=== PATIENT | male | born 1935 | race Caucasian/White ===

== ENCOUNTER 2020-05-26 10:44 | Emergency (ER) | payer MEDICARE, OTHER ==
--- NOTE | 2020-05-26 11:55 | EDM.PDOC ---
ED HPI GENERAL MEDICAL PROBLEM - General Chief Complaint: Respiratory Problem Stated Complaint: AMBULANCE Time Seen by Provider: 05/26/20 11:45 Source of Information: Reports: Patient History Limitations: Reports: No Limitations - History of Present Illness INITIAL COMMENTS - FREE TEXT/NARRATIVE: This 85 yo male patient was brought to the ED by [facility] due to nausea/vomiting and feeling hot. The patient reports he was nauseated this morning and vomited once. After vomiting, the patient reports he took all of his medications as prescribed. The patient reports he is currently feeling a little better, but his glucose monitor is beeping at him that he has low blood sugar levels. The patient reports he has been sweating all morning. The patient appears to be having difficulties breathing, but the patient reports his breathing is normal for him. Onset: Today Duration: Constant Location: Reports: Chest, Abdomen, Generalized Quality: Reports: Other Severity: Moderate Improves with: Reports: None Worsens with: Reports: None Context: Reports: Other Associated Symptoms: Reports: Fever/Chills, Nausea/Vomiting, Shortness of Breath (chronic) - Related Data Allergies Allergy/AdvReac Type Severity Reaction Status Date / Time atorvastatin calcium Allergy Joint Pain Verified 05/26/20 11:01 [From Lipitor] Home Meds: Home Meds Albuterol [Ventolin HFA] 1 puff INH Q6H PRN 05/27/14 [History] Isosorbide Mononitrate [Isosorbide Mononitrate ER] 30 mg PO DAILY 05/27/14 [History] Rosuvastatin [Crestor] 40 mg PO DAILY 05/27/14 [History] atenoloL [Tenormin] 100 mg PO DAILY 05/27/14 [History] Amoxicillin 500 mg PO ASDIRECTED PRN 05/26/20 [History] Apixaban [Eliquis] 10 mg PO DAILY 05/26/20 [History] Ferrous Sulfate 325 mg PO DAILY 05/26/20 [History] Fluticasone Propionate [Flonase] 1 spray NASBOTH DAILY 05/26/20 [History] Fluticasone/Vilanterol [Breo Ellipta 100-25 MCG Inhalation Kit] 1 puff INH DAILY 05/26/20 [History] Insulin Glarg,Human.Rec.Analog [Lantus Solostar] 35 units SQ DAILY 05/26/20 [History] Insulin Lispro [HumaLOG] 12 units SQ TID 05/26/20 [History] Ipratropium/Albuterol Sulfate [Iprat-Albut 0.5-3(2.5) mg/3 ml] 3 ml INH ASDIRECTED PRN 05/26/20 [History] Levothyroxine [Synthroid] 88 mcg PO DAILY 05/26/20 [History] Spironolactone [Aldactone] 12.5 mg PO DAILY 05/26/20 [History] Past Medical History HEENT History: Reports: Other (See Below) Other HEENT History: difficulty hearing Cardiovascular History: Reports: High Cholesterol, Hypertension Gastrointestinal History: Reports: Other (See Below) Other Gastrointestinal History: hernia Genitourinary History: Reports: None Musculoskeletal History: Reports: None Neurological History: Reports: None Psychiatric History: Reports: None Endocrine/Metabolic History: Reports: Diabetes, Type II Hematologic History: Reports: None Immunologic History: Reports: None Oncologic (Cancer) History: Reports: None Dermatologic History: Reports: None - Infectious Disease History Infectious Disease History: Reports: Chicken Pox - History Comment History Comment: on coumadin Social & Family History - Family History Family Medical History: Noncontributory - Tobacco Use Smoking Status *Q: Never Smoker Second Hand Smoke Exposure: No - Caffeine Use Caffeine Use: Reports: Soda - Recreational Drug Use Recreational Drug Use: No ED ROS GENERAL - Review of Systems Review Of Systems: Comprehensive ROS is negative, except as noted in HPI. ED EXAM, GENERAL - Physical Exam Exam: See Below Exam Limited By: No Limitations General Appearance: Alert, WD/WN, Mild Distress Eye Exam: Bilateral Eye: EOMI, Normal Inspection, PERRL Ears: Normal External Exam, Normal Canal, Hearing Grossly Normal, Normal TMs Nose: Normal Inspection, Normal Mucosa, No Blood Throat/Mouth: Normal Inspection, Normal Lips, Normal Teeth, Normal Gums, Normal Oropharynx, Normal Voice, No Airway Compromise Head: Atraumatic, Normocephalic Neck: Normal Inspection, Supple, Non-Tender, Full Range of Motion Respiratory/Chest: No Respiratory Distress, No Accessory Muscle Use, Chest Non- Tender, Decreased Breath Sounds, Rhonchi (diffuse) Cardiovascular: Normal Peripheral Pulses, Regular Rate, Rhythm, No Edema, No Gallop, No JVD, No Murmur, No Rub GI/Abdominal: Normal Bowel Sounds, Soft, Non-Tender, No Organomegaly, No Distention, No Abnormal Bruit, No Mass (Male) Exam: Deferred Rectal (Males) Exam: Deferred Back Exam: Normal Inspection, Full Range of Motion, NT Extremities: Normal Inspection, Normal Range of Motion, Non-Tender, Normal Capillary Refill, No Pedal Edema Neurological: Alert, Oriented, CN II-XII Intact, Normal Cognition, Normal Gait, Normal Reflexes, No Motor/Sensory Deficits Psychiatric: Normal Affect, Normal Mood Skin Exam: Warm, Intact, Normal Color, No Rash, Diaphoretic Course - Vital Signs Last Recorded V/S: Last Vital Signs Temp 35.4 C L 05/26/20 13:06 Pulse 73 05/26/20 13:06 Resp 16 05/26/20 13:06 BP 88/53 L 05/26/20 13:06 Pulse Ox 96 05/26/20 13:06 - Orders/Labs/Meds Orders: Active Orders 24 hr Category Date Time Status EKG Documentation Completion [RC] STAT Care 05/26/20 11:14 Active Glucose [Blood Glucose Check, Bedside] [RC] ONETIME Care 05/26/20 11:50 Active CULTURE BLOOD [BC] Stat Lab 05/26/20 11:27 Received Labs: Laboratory Tests 05/26/20 05/26/20 05/26/20 Range/Units 11:27 11:27 11:27 WBC 17.6 H (5.0-10.0) 10^3/uL RBC 5.53 (4.6-6.2) 10^6/uL Hgb 16.0 (14.0-18.0) g/dL Hct 46.7 (40.0-54.0) % MCV 84.4 (80-100) fL MCH 28.9 (27.0-34.0) pg MCHC 34.3 (33.0-35.0) g/dL Plt Count 262 (150-450) 10^3/uL Neut % (Auto) 93.1 H (42.2-75.2) % Lymph % (Auto) 3.0 L (20.5-50.1) % [place] % (Auto) 3.5 (2-8) % Eos % (Auto) 0.1 L (1.0-3.0) % Baso % (Auto) 0.3 (0.0-1.0) % Sodium 135 L (136-145) mmol/L Potassium 4.1 (3.5-5.1) mmol/L Chloride 100 (98-107) mmol/L Carbon Dioxide 26 (21-32) mmol/L Anion Gap 13.1 H (7-13) mEq/L BUN 21 H (7-18) mg/dL Creatinine 1.37 H (0.70-1.30) mg/dL Est Cr Clr Drug Dosing 36.19 mL/min Estimated GFR (MDRD) 49 BUN/Creatinine Ratio 15.3 (No establ ref range) Glucose 73 L (74-99) mg/dL Lactic Acid 2.3 H* (0.4-2.0) mmol/L Calcium 8.9 (8.5-10.1) mg/dL Total Bilirubin 2.3 H (0.2-1.0) mg/dL AST 37 (15-37) U/L ALT 45 (16-63) U/L Alkaline Phosphatase 225 H (46-116) U/L Troponin I 0.051 (0.000-0.056) ng/mL B-Natriuretic Peptide 461 H (0-100) pg/ml Total Protein 7.1 (6.4-8.2) g/dL Albumin 2.8 L (3.4-5.0) g/dL Globulin 4.3 Albumin/Globulin Ratio 0.65 COVID-19 (EVONNE) (NEGATIVE) 05/26/20 Range/Units 11:40 WBC (5.0-10.0) 10^3/uL RBC (4.6-6.2) 10^6/uL Hgb (14.0-18.0) g/dL Hct (40.0-54.0) % MCV (80-100) fL MCH (27.0-34.0) pg MCHC (33.0-35.0) g/dL Plt Count (150-450) 10^3/uL Neut % (Auto) (42.2-75.2) % Lymph % (Auto) (20.5-50.1) % [place] % (Auto) (2-8) % Eos % (Auto) (1.0-3.0) % Baso % (Auto) (0.0-1.0) % Sodium (136-145) mmol/L Potassium (3.5-5.1) mmol/L Chloride (98-107) mmol/L Carbon Dioxide (21-32) mmol/L Anion Gap (7-13) mEq/L BUN (7-18) mg/dL Creatinine (0.70-1.30) mg/dL Est Cr Clr Drug Dosing mL/min Estimated GFR (MDRD) BUN/Creatinine Ratio (No establ ref range) Glucose (74-99) mg/dL Lactic Acid (0.4-2.0) mmol/L Calcium (8.5-10.1) mg/dL Total Bilirubin (0.2-1.0) mg/dL AST (15-37) U/L ALT (16-63) U/L Alkaline Phosphatase (46-116) U/L Troponin I (0.000-0.056) ng/mL B-Natriuretic Peptide (0-100) pg/ml Total Protein (6.4-8.2) g/dL Albumin (3.4-5.0) g/dL Globulin Albumin/Globulin Ratio COVID-19 (EVONNE) Negative (NEGATIVE) Meds: Medications Discontinued Medications Generic Name Dose Route Start Last Admin Trade Name Freq PRN Reason Stop Dose Admin Ceftriaxone Sodium 1 gm/ 50 mls @ 100 mls/hr 05/26/20 12:30 05/26/20 12:39 Sodium Chloride IV 05/26/20 12:59 100 mls/hr ONETIME ONE Administration Departure - Departure Time of Disposition: 13:49 Disposition: Home, Self-Care 01 Condition: Fair Clinical Impression: Hypoglycemia, Bronchitis - Discharge Information *PRESCRIPTION DRUG MONITORING PROGRAM REVIEWED*: Not Applicable *COPY OF PRESCRIPTION DRUG MONITORING REPORT IN PATIENT CRISTY: Not Applicable Instructions: Hypoglycemia, [id number], Acute Bronchitis, Adult, [id number] Forms: ED Department Discharge Care Plan Goals: The patient was advised of the examination, EKG, x-ray and lab results during the visit. The patient was given an IV dose of Rocephin (1 gram) while in the ED. The patient was discharged with a script for Azithromycin (250 mg) #6 to take 2 by mouth on day 1 and 1 by mouth on days 2-5. If the patient has any additional symptoms or concerns, the patient should visit his primary care facility or return to the emergency department. Sepsis Event Note (ED) - Evaluation Sepsis Screening Result: No Definite Risk - Focused Exam Vital Signs: Vital Signs Temp Pulse Resp BP Pulse Ox 05/26/20 13:06 35.4 C L 73 16 88/53 L 96 05/26/20 10:45 37.2 C 80 23 H 114/58 L 94 L - My Orders Last 24 Hours: My Active Orders 05/26/20 11:14 EKG Documentation Completion [RC] STAT 05/26/20 11:27 CULTURE BLOOD [BC] Stat 05/26/20 11:50 Glucose [Blood Glucose Check, Bedside] [RC] ONETIME - Assessment/Plan Last 24 Hours: My Active Orders 05/26/20 11:14 EKG Documentation Completion [RC] STAT 05/26/20 11:27 CULTURE BLOOD [BC] Stat 05/26/20 11:50 Glucose [Blood Glucose Check, Bedside] [RC] ONETIME
[2020-05-26 12:03] LABS: ANION GAP 13.1 mEq/L (7-13)
--- NOTE | 2020-05-26 12:28 | CR ---
EXAMINATION: Chest 1V Frontal SEX: Male AGE: 85 years CLINICAL HISTORY: 85-year-old male complaining of shortness of breath (SOB). INTERPRETATION: Abnormal. 1. Asymmetric patchy consolidation left base consistent with apparent infiltrate, atelectasis or bronchiectasis demonstrated on CT exam March 2017 recent aspiration and no pneumonia differential consideration. Clinical? 2. Normal cardiac silhouette (pacemaker leads intact) without pulmonary vascular congestion, cephalization of flow, alveolar edema or dependent pleural effusion. 3. No new lung mass or hilar lymphadenopathy. 4. No pneumothorax or pneumomediastinum. Midline tracheal bronchial airway unremarkable. CONCLUSION: Left lower lobe consolidation (see above).
[2020-05-26] MEDS ORDERED: cefTRIAXone 1 GM in Sodium Chloride 0.9% 50 ML IV ONE (12:30)
[2020-05-26 13:08] VITALS: BP 88/53; PULSE 73
== END 2020-05-26 14:04 | disposition home or self-care (01) ==
LOC: DL.ED 10:44
DX: J40 Bronchitis, not specified as acute or chronic (principal); E11.649 Type 2 diabetes mellitus with hypoglycemia without coma; I10 Essential (primary) hypertension; E78.00 Pure hypercholesterolemia, unspecified; Z20.828 Contact with and (suspected) exposure to other viral communicable diseases; Z79.01 Long term (current) use of anticoagulants; Z79.4 Long term (current) use of insulin; Z79.899 Other long term (current) drug therapy; Z88.8 Allergy status to other drugs, medicaments and biological substances
CPT/HCPCS: 36415; 71045; 80053; 82962; 83605; 83880; 84484; 85025; 87040; 93005; 96365; 99285; J0696; J7050; U0002

== ENCOUNTER 2020-05-30 10:34 | Emergency (ER) | payer MEDICARE, OTHER ==
[2020-05-30 10:55] VITALS: BP 118/82; PULSE 78
--- NOTE | 2020-05-30 12:40 | CR ---
PROCEDURE INFORMATION: Exam: XR Chest, 2 Views Exam date and time: 05/30/2020 12:20 PM Age: 85 years old Clinical indication: Cough TECHNIQUE: Imaging protocol: XR of the chest Views: 2 views. COMPARISON: CR Chest 1V Frontal 05/26/2020 12:12 PM FINDINGS: Tubes, catheters and devices: Chronic unchanged right sided cardiac pacer generator having 2 intact leads. Lungs: The lungs are normally expanded and clear. Pleural space: Normal. Heart/Mediastinum: Normal heart and cardiomediastinal silhouette. Vasculature: Aortic root graft. Bones/joints: The bones are intact. IMPRESSION: No change or acute disease.
--- NOTE | 2020-05-30 13:28 | EDM.PDOC ---
Scribed by Hilaria Mcdowell 05/30/20 1323 for Jennifer Rodgers NP ED HPI GENERAL MEDICAL PROBLEM - General Chief Complaint: General Stated Complaint: NAUSEA, BRONCHITIS, WEAK Time Seen by Provider: 05/30/20 11:45 Source of Information: Reports: Patient, Family, RN, RN Notes Reviewed History Limitations: Reports: No Limitations - History of Present Illness INITIAL COMMENTS - FREE TEXT/NARRATIVE: Patient presents to ER with history of bronchitis and feeling worse. He was seen in the ER earlier this week and diagnosed with bronchitis. He was given 1 gram Rocephin IV and sent home with a Z-PRIYANKA. He has one pill left on the Z-PRIYANKA but is feeling worse. He was COVID negative earlier in the week. Onset: Gradual Duration: Getting Worse Location: Reports: Chest Quality: Reports: Ache Severity: Moderate Improves with: Reports: None Worsens with: Reports: None Associated Symptoms: Reports: No Other Symptoms - Related Data Allergies Allergy/AdvReac Type Severity Reaction Status Date / Time atorvastatin calcium Allergy Joint Pain Verified 05/30/20 10:55 [From Lipitor] Home Meds: Home Meds Albuterol [Ventolin HFA] 1 puff INH Q6H PRN 05/27/14 [History] Isosorbide Mononitrate [Isosorbide Mononitrate ER] 30 mg PO DAILY 05/27/14 [History] Rosuvastatin [Crestor] 40 mg PO DAILY 05/27/14 [History] atenoloL [Tenormin] 100 mg PO DAILY 05/27/14 [History] Amoxicillin 500 mg PO ASDIRECTED PRN 05/26/20 [History] Apixaban [Eliquis] 10 mg PO DAILY 05/26/20 [History] Ferrous Sulfate 325 mg PO DAILY 05/26/20 [History] Fluticasone Propionate [Flonase] 1 spray NASBOTH DAILY 05/26/20 [History] Fluticasone/Vilanterol [Breo Ellipta 100-25 MCG Inhalation Kit] 1 puff INH DAILY 05/26/20 [History] Insulin Glarg,Human.Rec.Analog [Lantus Solostar] 35 units SQ DAILY 05/26/20 [History] Insulin Lispro [HumaLOG] 12 units SQ TID 05/26/20 [History] Ipratropium/Albuterol Sulfate [Iprat-Albut 0.5-3(2.5) mg/3 ml] 3 ml INH ASDIRECTED PRN 05/26/20 [History] Levothyroxine [Synthroid] 88 mcg PO DAILY 05/26/20 [History] Spironolactone [Aldactone] 12.5 mg PO DAILY 05/26/20 [History] Past Medical History HEENT History: Reports: Other (See Below) Other HEENT History: difficulty hearing Cardiovascular History: Reports: High Cholesterol, Hypertension Gastrointestinal History: Reports: Other (See Below) Other Gastrointestinal History: hernia Genitourinary History: Reports: None Musculoskeletal History: Reports: None Neurological History: Reports: None Psychiatric History: Reports: None Endocrine/Metabolic History: Reports: Diabetes, Type II Hematologic History: Reports: None Immunologic History: Reports: None Oncologic (Cancer) History: Reports: None Dermatologic History: Reports: None - Infectious Disease History Infectious Disease History: Reports: Chicken Pox - History Comment History Comment: on coumadin Social & Family History - Family History Family Medical History: Noncontributory - Tobacco Use Smoking Status *Q: Never Smoker Second Hand Smoke Exposure: No - Caffeine Use Caffeine Use: Reports: Soda - Recreational Drug Use Recreational Drug Use: No ED ROS GENERAL - Review of Systems Review Of Systems: Comprehensive ROS is negative, except as noted in HPI. ED EXAM, GENERAL - Physical Exam Exam: See Below Exam Limited By: No Limitations General Appearance: Alert, WD/WN, No Apparent Distress Eye Exam: Bilateral Eye: EOMI, Normal Inspection, PERRL Ears: Normal External Exam, Normal Canal, Hearing Grossly Normal, Normal TMs Nose: Normal Inspection, Normal Mucosa, No Blood Throat/Mouth: Normal Inspection, Normal Lips, Normal Teeth, Normal Gums, Normal Oropharynx, Normal Voice, No Airway Compromise Head: Atraumatic, Normocephalic Neck: Normal Inspection, Supple, Non-Tender, Full Range of Motion Respiratory/Chest: Other (mild decreased breath sounds.) Cardiovascular: Normal Peripheral Pulses, Regular Rate, Rhythm, No Edema, No Gallop, No JVD, No Murmur, No Rub GI/Abdominal: Normal Bowel Sounds, Soft, Non-Tender, No Organomegaly, No Distention, No Abnormal Bruit, No Mass (Male) Exam: Deferred Rectal (Males) Exam: Deferred Back Exam: Normal Inspection, Full Range of Motion, NT Extremities: Normal Inspection, Normal Range of Motion, Non-Tender, Normal Capillary Refill, No Pedal Edema Neurological: Alert, Oriented, CN II-XII Intact, Normal Cognition, Normal Gait, Normal Reflexes, No Motor/Sensory Deficits Psychiatric: Normal Affect, Normal Mood Skin Exam: Warm, Dry, Intact, Normal Color, No Rash Course - Vital Signs Text/Narrative:: No fevers, chest xray negative. Had Rocephin IV 4 days ago; and just finishing his z-pack tomorrow. concerned that he still is coughing with congestion. No SOB. VSS. would benifit by a IS; given. Would benifit by a albuterol inhaler rx given. Will f/u with PCP in 1 week. Last Recorded V/S: Last Vital Signs Temp 97.3 F 05/30/20 10:51 Pulse 78 05/30/20 10:51 Resp 16 05/30/20 10:51 BP 118/82 05/30/20 10:51 Pulse Ox 98 05/30/20 10:51 - Radiology Interpretation Free Text/Narrative:: Chest x-ray: No change or acute disease. See rad report. Departure - Departure Time of Disposition: 13:26 Disposition: Home, Self-Care 01 Condition: Good Clinical Impression: Bronchitis - Discharge Information Forms: ED Department Discharge Additional Instructions: Xray is negative. Bronchitis will take time to improve. Follow up with PCP in 1 week. Use inhaler albuterol 2 puffs 3 x per day Sepsis Event Note (ED) - Evaluation Sepsis Screening Result: No Definite Risk - Focused Exam Vital Signs: Vital Signs Temp Pulse Resp BP Pulse Ox 05/30/20 10:51 97.3 F 78 16 118/82 98 I have read and agree with the documentation that has been completed regarding this visit. By signing this record, I attest that the documentation was completed in my physical presence and is an accurate record of the encounter.
== END 2020-05-30 13:33 | disposition home or self-care (01) ==
LOC: DL.ED 10:34
DX: J40 Bronchitis, not specified as acute or chronic (principal); E78.00 Pure hypercholesterolemia, unspecified; I10 Essential (primary) hypertension; E11.9 Type 2 diabetes mellitus without complications; Z79.4 Long term (current) use of insulin; Z79.01 Long term (current) use of anticoagulants; Z88.8 Allergy status to other drugs, medicaments and biological substances; Z79.899 Other long term (current) drug therapy
CPT/HCPCS: 71046; 99283; 99283-25

== ENCOUNTER 2020-06-10 17:26 | Emergency (ER) | payer MEDICARE, OTHER ==
[2020-06-10 17:38] VITALS: BP 104/61; PULSE 85
--- NOTE | 2020-06-10 17:43 | EDM.PDOC ---
<Nathen Avila - Last Filed: 06/10/20 18:47> ED HPI GENERAL MEDICAL PROBLEM - General Stated Complaint: ABDOMINAL PAIN Time Seen by Provider: 06/10/20 18:59 Source of Information: Reports: Patient History Limitations: Reports: No Limitations - History of Present Illness INITIAL COMMENTS - FREE TEXT/NARRATIVE: This 85 yo male patient was sent to the ED by Dr. yL ([facility]) due to abdominal pain, vomiting, chills, an elevated billirubin and elevated LFT's. The patient reports his symptoms started 3 days ago. - Related Data Allergies Allergy/AdvReac Type Severity Reaction Status Date / Time atorvastatin calcium Allergy Joint Pain Verified 06/10/20 17:44 [From Lipitor] Home Meds: Home Meds Albuterol [Ventolin HFA] 2 puff INH Q6H PRN 05/27/14 [History] Isosorbide Mononitrate [Isosorbide Mononitrate ER] 30 mg PO DAILY 05/27/14 [History] Rosuvastatin [Crestor] 40 mg PO DAILY 05/27/14 [History] atenoloL [Tenormin] 100 mg PO DAILY 05/27/14 [History] Apixaban [Eliquis] 5 mg PO BID 05/26/20 [History] Ferrous Sulfate 325 mg PO DAILY 05/26/20 [History] Fluticasone Propionate [Flonase] 1 spray NASBOTH DAILY 05/26/20 [History] Fluticasone/Vilanterol [Breo Ellipta 100-25 MCG Inhalation Kit] 1 puff INH DAILY 05/26/20 [History] Insulin Glarg,Human.Rec.Analog [Lantus Solostar] 35 units SQ DAILY 05/26/20 [History] Insulin Lispro [HumaLOG] 12 units SQ BID 05/26/20 [History] Ipratropium/Albuterol Sulfate [Iprat-Albut 0.5-3(2.5) mg/3 ml] 3 ml INH ASDIRECTED PRN 05/26/20 [History] Levothyroxine [Synthroid] 88 mcg PO DAILY 05/26/20 [History] Spironolactone [Aldactone] 12.5 mg PO DAILY 05/26/20 [History] Insulin Lispro [Humalog] 22 units SQ DAILY 06/10/20 [History] Multivitamin 1 tab PO DAILY 06/10/20 [History] Past Medical History HEENT History: Reports: Other (See Below) Other HEENT History: difficulty hearing Cardiovascular History: Reports: High Cholesterol, Hypertension Gastrointestinal History: Reports: Other (See Below) Other Gastrointestinal History: hernia Genitourinary History: Reports: None Musculoskeletal History: Reports: None Neurological History: Reports: None Psychiatric History: Reports: None Endocrine/Metabolic History: Reports: Diabetes, Type II Hematologic History: Reports: None Immunologic History: Reports: None Oncologic (Cancer) History: Reports: None Dermatologic History: Reports: None - Infectious Disease History Infectious Disease History: Reports: Chicken Pox - History Comment History Comment: on coumadin Social & Family History - Family History Family Medical History: Noncontributory - Caffeine Use Caffeine Use: Reports: Soda Departure - Departure Disposition: DC/Tfer to [facility] 02 Clinical Impression: Cholangiectasis - Discharge Information Referrals: Erasmo Ly MD [Primary Care Provider] - Forms: ED Department Discharge Sepsis Event Note (ED) - Evaluation Sepsis Screening Result: No Definite Risk <Alphonso Herzog R - Last Filed: 06/10/20 19:08> ED HPI GENERAL MEDICAL PROBLEM - History of Present Illness INITIAL COMMENTS - FREE TEXT/NARRATIVE: Lencho is a 85 year old male with history of A-fib on Eliquis, Carcinoid tumor of appendix, colon cancer s/p laparoscopic partial colectomy with anastomosis in 2014, GERD, CVA, Type II DM, HTN and CAD who presents with a 4 days history of periumbilical abdominal pain, nausea and vomiting. His abdominal pain is intermittent, lasts for 2-3 hours when it comes. Sometimes this can last the whole day. it's non-radiating. He is unsure if this is related to his meals. He notes associated chills and fatigue. He notes that his abdominal pain has improved today, although he vomited this AM and has not had anything to eat since then. He denies fever, shortness of breath, dizziness, lightheadedness, chest pain, blood in stools or changes in BM's. Notes some chronic constipation. He denies dysuria or hematuria. Denies flank pain or any back pain. He was seen in [facility] this afternoon by Dr. Moradela and labs including CBC, CMP, Lipase, Amylase and UA were done. Labs show elevated LFTs and bilirubin, Elevated WBC. Onset: Sudden Onset Date: 06/07/20 Duration: Waxing/Waning Quality: Reports: Sharp, Stabbing Severity: Moderate Improves with: Reports: None ED ROS GENERAL - Review of Systems Constitutional: Reports: Chills, Fatigue, Decreased Appetite GI/Abdominal: Reports: Abdominal Pain, Constipation, Decreased Appetite, Nausea, Vomiting ED EXAM, GI/ABD - Physical Exam GI/Abdominal Exam: Non-Tender, Tender Rectal (Males) Exam: Deferred <Danielle Gamboa - Last Filed: 06/10/20 23:37> ED ROS GENERAL - Review of Systems Review Of Systems: See Below ED EXAM, GI/ABD - Physical Exam Exam: See Below Exam Limited By: No Limitations General Appearance: Alert, No Apparent Distress Eyes: Bilateral: EOMI Ears: Normal External Exam, Hearing Loss Throat/Mouth: Normal Inspection Head: Atraumatic, Normocephalic Neck: Normal Inspection Respiratory/Chest: No Respiratory Distress, Decreased Breath Sounds (bases ) Cardiovascular: Regular Rate, Rhythm, No Edema GI/Abdominal Exam: Tender (RUQ deep palpation), Abnormal Bowel Sounds (hypoacti ve) Neurological: Alert, Oriented Psychiatric: Anxious Skin Exam: Warm, Dry, Intact Course - Vital Signs Last Recorded V/S: Last Vital Signs Temp 98.5 F 06/10/20 17:37 Pulse 85 06/10/20 17:37 Resp 18 06/10/20 17:37 BP 104/61 06/10/20 17:37 Pulse Ox 98 06/10/20 17:37 - Orders/Labs/Meds Orders: Active Orders 24 hr Category Date Time Status Blood Glucose Check, Bedside [RC] ONETIME Care 06/10/20 19:20 Active CULTURE BLOOD [BC] Stat Lab 06/10/20 20:45 Received CULTURE BLOOD [BC] Stat Lab 06/10/20 20:50 Received Blood Culture x2 Reflex Set [OM.PC] Stat Oth 06/10/20 20:33 Ordered Labs: Laboratory Tests 06/10/20 06/10/20 06/10/20 Range/Units 18:10 20:45 20:50 WBC 17.6 H (5.0-10.0) 10^3/uL Neut % (Auto) 84.2 H (42.2-75.2) % Lymph % (Auto) 5.6 L (20.5-50.1) % [place] % (Auto) 9.7 H (2-8) % Eos % (Auto) 0.2 L (1.0-3.0) % Baso % (Auto) 0.3 (0.0-1.0) % Lactic Acid 1.3 (0.4-2.0) mmol/L COVID-19 (EVONNE) Negative (NEGATIVE) Meds: Medications Discontinued Medications Generic Name Dose Route Start Last Admin Trade Name Freq PRN Reason Stop Dose Admin Piperacillin Sod/Tazobactam 100 mls @ 200 mls/hr 06/10/20 20:34 06/10/20 20: 54 Sod 3.375 gm/ Sodium Chloride IV 06/10/20 21:03 200 mls/hr ONETIME ONE Administration Iopamidol 100 ml 06/10/20 18:40 06/10/20 19:40 Isovue-300 (61%) IVPUSH 06/10/20 18:41 75 ml ONETIME ONE Administration - Re-Assessments/Exams Free Text/Narrative Re-Assessment/Exam: 06/10/20 23:35 SHORTY Stephens, Dr Rizvi surgery, Dr Mak reviewed results and CT. Dr Kam ED accepting patient. Tx via [facility] Code status addressed Cpr, No ventilator. states she will bring copy of living will to GF. Departure - Departure Time of Disposition: 21:35 Condition: Undetermined - Discharge Information *PRESCRIPTION DRUG MONITORING PROGRAM REVIEWED*: No *COPY OF PRESCRIPTION DRUG MONITORING REPORT IN PATIENT CRISTY: No Sepsis Event Note (ED) - Focused Exam Vital Signs: Vital Signs Temp Pulse Resp BP Pulse Ox 06/10/20 17:37 98.5 F 85 18 104/61 98 - My Orders Last 24 Hours: My Active Orders 06/10/20 19:20 Blood Glucose Check, Bedside [RC] ONETIME 06/10/20 20:33 Blood Culture x2 Reflex Set [OM.PC] Stat 06/10/20 20:45 CULTURE BLOOD [BC] Stat 06/10/20 20:50 CULTURE BLOOD [BC] Stat - Assessment/Plan Last 24 Hours: My Active Orders 06/10/20 19:20 Blood Glucose Check, Bedside [RC] ONETIME 07/29/20 20:33 Blood Culture x2 Reflex Set [OM.PC] Stat 06/10/20 20:45 CULTURE BLOOD [BC] Stat 06/10/20 20:50 CULTURE BLOOD [BC] Stat
[2020-06-10] MEDS ORDERED: Iopamidol 612 MG/ML 100 ML Bottle IVPUSH ONE (18:40)
--- NOTE | 2020-06-10 19:59 | CT ---
PROCEDURE INFORMATION: Exam: CT Abdomen And Pelvis With Contrast Exam date and time: 06/10/2020 7:16 PM Age: 85 years old Clinical indication: Other: See below; Prior surgery; Surgery date: 6+ months; Surgery type: HX colon CA colon surgery; Additional info: Elevated wbc, elevated bili, elevated lft's TECHNIQUE: Imaging protocol: Computed tomography of the abdomen and pelvis with intravenous contrast. Radiation optimization: All CT scans at this facility use at least one of these dose optimization techniques: automated exposure control; mA and/or kV adjustment per patient size (includes targeted exams where dose is matched to clinical indication); or iterative reconstruction. Contrast material: ISOVUE; Contrast volume: 75 ml; Contrast route: INTRAVENOUS (IV); COMPARISON: CT Chest Abdomen Pelvis w Cont 03/16/2017 9:50 AM FINDINGS: Tubes, catheters and devices: Leads from a cardiac pacer with the tips in the right atrium and right ventricle. Findings are stable. Lungs: Dependent atelectasis in the lungs bilaterally. Patchy airspace disease in the left lower lobe that could represent atelectasis versus mild pneumonia. 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 Stable mild enlargement of the heart. Liver: Stable nodular contour of the liver with hypertrophy of the left lobe of the liver. Heterogenous enhancement of the liver that may be due to fibrotic change. Gallbladder and bile ducts: The gallbladder is mildly distended. Multiple stones in the gallbladder. Mild gallbladder wall thickening and mild pericholecystic inflammation. The common bile duct measures 7.9 mm, previously measured 5.1 mm Multiple retained biliary stones in the distal common bile duct in the head of the pancreas, including a stone at the ampulla (series 4, image 28). (series 3, image 38). Pancreas: The pancreas is unremarkable. No pancreatic ductal dilatation. Spleen: Heterogenous enhancement of the spleen, likely due to phase of contrast enhancement. Adrenals: The right and left adrenal glands are unremarkable. Kidneys and ureters: The right and left kidneys are unremarkable. The right and left ureters are unremarkable. Stomach and bowel: Stable changes consistent with a right partial colectomy and ileocolic anastomosis. No dilated loops of small bowel or colon. Stable small ventral midline hernia containing small bowel loops without evidence of strangulation or bowel obstruction. Appendix: The patient has had a previous appendectomy. Intraperitoneal space: No free intraperitoneal air. No ascites. No loculated fluid collections to suggest an abscess. Vasculature: Stable moderate atherosclerotic calcification in the coronary arteries. Extensive atherosclerotic changes in the visualized arteries. No evidence for aortic aneurysm or aortic dissection. Lymph nodes: No lymphadenopathy. Bladder: Unremarkable as visualized. Reproductive: Calcifications in the vas deferens. Bones/joints: Moderate degenerative changes at both the right and left hips. There is partial fusion of the right and left sacroiliac joints, consistent with a remote episode of seronegative sacroiliitis versus sequela of degenerative change. Multilevel degenerative changes of varying severity in the visualized spine. Mild spinal canal stenosis at L1-L2, L2-L3, and L5-S1. Moderate spinal canal stenosis at L3-L4 and L4-L5. Multilevel foraminal stenosis of varying severity in the lumbar spine. Mild dextroscoliosis in the visualized spine. Osseous findings are stable. Soft tissues: No acute abnormality in the extra-abdominal soft tissues. IMPRESSION: 1. Cholelithiasis and multiple retained biliary stones with interval development of mild gallbladder distension and findings suspicious for cholecystitis as well as mild prominence of the common bile duct. 2. Patchy airspace disease in the left lower lobe that could represent atelectasis versus mild pneumonia. Recommend clinical correlation. Recommend followup chest imaging in 4-6 weeks to insure resolution of these findings. 3. 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 4. Calcifications in the vas deferens. Findings raise suspicion for diabetes mellitus. Recommend clinical correlation. 5. Redemonstration of findings consistent with cirrhosis of the liver. 6. Incidental/nonacute findings are listed in the report.
[2020-06-10] MEDS ORDERED: Piperacillin/Tazobactam 3.375 GM in Sodium Chloride 0.9% 100 ML IV ONE (20:34)
== END 2020-06-10 21:34 ==
LOC: DL.ED 17:26
DX: K83.8 Other specified diseases of biliary tract (principal); I10 Essential (primary) hypertension; E11.9 Type 2 diabetes mellitus without complications; E78.00 Pure hypercholesterolemia, unspecified; I25.10 Atherosclerotic heart disease of native coronary artery without angina pectoris; Z79.01 Long term (current) use of anticoagulants; Z79.899 Other long term (current) drug therapy; Z79.4 Long term (current) use of insulin; Z88.8 Allergy status to other drugs, medicaments and biological substances; Z86.73 Personal history of transient ischemic attack (TIA), and cerebral infarction without residual deficits; Z20.828 Contact with and (suspected) exposure to other viral communicable diseases
CPT/HCPCS: 36415; 74177; 82962; 83605; 85004; 87040; 87077; 87186; 96365; 99285; J2543; J7050; Q9967; U0002; 99284

== ENCOUNTER 2020-07-02 12:08 | Emergency (ER) | payer MEDICARE, OTHER ==
[2020-07-02] MEDS ORDERED: Sodium Chloride 0.9% 10 ML Syringe FLUSH PRN (12:15)
[2020-07-02 12:35] VITALS: BP 107/63; PULSE 80
[2020-07-02 13:00] LABS: ANION GAP 11.9 mEq/L (7-13)
[2020-07-02] MEDS ORDERED: Sodium Chloride 0.9% 1,000 ML IV ONE (13:16)
[2020-07-02] MEDS ORDERED: Aspirin 81 MG Tab.Chew PO ONE (13:16)
[2020-07-02] MEDS ORDERED: Potassium Chloride 20 MEQ in Premix Bag 1 BAG IV ONE ×2 (13:16→16:34)
--- NOTE | 2020-07-02 13:37 | EDM.PDOC ---
ED HPI GENERAL MEDICAL PROBLEM - General Chief Complaint: Cardiovascular Problem Stated Complaint: SENT FROM CLINIC Time Seen by Provider: 07/02/20 12:40 Source of Information: Reports: Patient, Family, Provider (Monalisa Carrasco NP), RN, RN Notes Reviewed History Limitations: Reports: Language Barrier (Slurred speech, difficult to understand) - History of Present Illness INITIAL COMMENTS - FREE TEXT/NARRATIVE: Patient presents to ER from [facility]. Patient 2 weeks ago had a lap breanne performed. Was in the hospital for quite some time. Daughter states the patient came home with a rash to his vida-area, sores in his mouth, speech was slurred more so than usual. Patient's daughter very frustrated with the care given while in the hospital. 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 Home health has been seeing the patient at home, and has been reporting blood pressures of 70s systolically, dry mouth, and worsening of ulcers in the mouth. Kidney function at the clinic was found to be much decreased from 1 month ago in May. Blood pressure here is 109/59. Patient states he was sent home from [place] on a water pill and has been taking potassium, 4 pills a day. Potassium at the clinic was 2.7. Daughter states overall the patient has declined since coming home from [place]. States he has been more tired, increased slurred speech, and worsening of mouth ulcers. Patient's daughter also states the patient is a severe diabetic. Onset: Gradual - Related Data Allergies Allergy/AdvReac Type Severity Reaction Status Date / Time atorvastatin calcium Allergy Joint Pain Verified 07/02/20 13:06 [From Lipitor] Home Meds: Home Meds Albuterol [Ventolin HFA] 2 puff INH Q6H PRN 05/27/14 [History] Isosorbide Mononitrate [Isosorbide Mononitrate ER] 30 mg PO DAILY 05/27/14 [History] Rosuvastatin [Crestor] 40 mg PO DAILY 05/27/14 [History] atenoloL [Tenormin] 100 mg PO DAILY 05/27/14 [History] Apixaban [Eliquis] 5 mg PO BID 05/26/20 [History] Ferrous Sulfate 325 mg PO DAILY 05/26/20 [History] Fluticasone Propionate [Flonase] 1 spray NASBOTH DAILY 05/26/20 [History] Fluticasone/Vilanterol [Breo Ellipta 100-25 MCG Inhalation Kit] 1 puff INH DAILY 05/26/20 [History] Insulin Glarg,Human.Rec.Analog [Lantus Solostar] 35 units SQ DAILY 05/26/20 [History] Insulin Lispro [HumaLOG] 12 units SQ BID 05/26/20 [History] Ipratropium/Albuterol Sulfate [Iprat-Albut 0.5-3(2.5) mg/3 ml] 3 ml INH ASDIRECTED PRN 05/26/20 [History] Levothyroxine [Synthroid] 88 mcg PO DAILY 05/26/20 [History] Spironolactone [Aldactone] 12.5 mg PO DAILY 05/26/20 [History] Insulin Lispro [Humalog] 22 units SQ DAILY 06/10/20 [History] Multivitamin 1 tab PO DAILY 06/10/20 [History] Past Medical History HEENT History: Reports: Other (See Below) Other HEENT History: difficulty hearing Cardiovascular History: Reports: High Cholesterol, Hypertension Respiratory History: Reports: COPD Gastrointestinal History: Reports: Other (See Below) Other Gastrointestinal History: hernia Genitourinary History: Reports: None Musculoskeletal History: Reports: None Neurological History: Reports: None Psychiatric History: Reports: None Endocrine/Metabolic History: Reports: Diabetes, Type II Hematologic History: Reports: None Immunologic History: Reports: None Oncologic (Cancer) History: Reports: None Dermatologic History: Reports: None - Infectious Disease History Infectious Disease History: Reports: None - Past Surgical History GI Surgical History: Reports: Colon - History Comment History Comment: on coumadin Social & Family History - Family History Family Medical History: Noncontributory - Tobacco Use Smoking Status *Q: Never Smoker Second Hand Smoke Exposure: No - Caffeine Use Caffeine Use: Reports: Soda - Recreational Drug Use Recreational Drug Use: No ED ROS GENERAL - Review of Systems Review Of Systems: Comprehensive ROS is negative, except as noted in HPI. ED EXAM, GENERAL - Physical Exam Exam: See Below Exam Limited By: Language Barrier (Difficulty with speech) General Appearance: Alert, WD/WN, No Apparent Distress Eye Exam: Bilateral Eye: EOMI, Normal Inspection Ears: Normal External Exam, Hearing Grossly Normal, Hearing Loss Nose: Normal Inspection Throat/Mouth: Normal Voice, No Airway Compromise, Other (Dry mucous membranes, yellow ulcerations to the tongue, gums, cheek) Head: Atraumatic, Normocephalic Neck: Normal Inspection, Supple, Non-Tender, Limited Range of Motion Respiratory/Chest: No Respiratory Distress, Crackles (bases bilaterally) Cardiovascular: Normal Peripheral Pulses, Regular Rate, Rhythm, No Edema, Other (Ventricular paced) Peripheral Pulses: 2+: Radial (L), Radial (R) GI/Abdominal: Normal Bowel Sounds, Soft, Non-Tender (Male) Exam: Deferred Rectal (Males) Exam: Deferred Back Exam: Normal Inspection, Decreased Range of Motion Extremities: Normal Inspection, Normal Range of Motion, Non-Tender, No Pedal Edema, Normal Capillary Refill Neurological: Alert, Oriented, CN II-XII Intact, Normal Cognition Psychiatric: Normal Affect, Normal Mood Skin Exam: Warm, Dry, No Rash, Wound/Incision (lap breanne wounds healing, ulce rations from tape or glue) Lymphatic: No Adenopathy Course - Vital Signs Last Recorded V/S: Last Vital Signs Temp 96.5 F L 07/02/20 12:33 Pulse 80 07/02/20 12:33 Resp 15 07/02/20 12:33 BP 107/63 07/02/20 12:33 Pulse Ox 98 07/02/20 12:33 - Orders/Labs/Meds Orders: Active Orders 24 hr Category Date Time Status CULTURE URINE [RM] Stat Lab 07/02/20 13:40 Received Peripheral IV Insertion Adult [OM.PC] Stat Oth 07/02/20 12:16 Ordered Labs: Laboratory Tests 07/02/20 07/02/20 07/02/20 Range/Units 12:30 12:30 12:30 WBC 11.0 H (5.0-10.0) 10^3/uL RBC 4.39 L (4.6-6.2) 10^6/uL Hgb 12.6 L D (14.0-18.0) g/dL Hct 37.3 L (40.0-54.0) % MCV 85.0 (80-100) fL MCH 28.7 (27.0-34.0) pg MCHC 33.8 (33.0-35.0) g/dL Plt Count 481 H D (150-450) 10^3/uL Neut % (Auto) 69.1 (42.2-75.2) % Lymph % (Auto) 12.3 L (20.5-50.1) % Marinette % (Auto) 15.0 H (2-8) % Eos % (Auto) 3.1 H (1.0-3.0) % Baso % (Auto) 0.5 (0.0-1.0) % Sodium 134 L (136-145) mmol/L Potassium 2.9 L (3.5-5.1) mmol/L Chloride 95 L (98-107) mmol/L Carbon Dioxide 30 (21-32) mmol/L Anion Gap 11.9 (7-13) mEq/L BUN 44 H (7-18) mg/dL Creatinine 3.55 H D (0.70-1.30) mg/dL Est Cr Clr Drug Dosing 15.91 mL/min Estimated GFR (MDRD) 16 BUN/Creatinine Ratio 12.4 (No establ ref range) Glucose 143 H (74-99) mg/dL Lactic Acid 2.0 (0.4-2.0) mmol/L Calcium 9.0 (8.5-10.1) mg/dL Total Bilirubin 2.5 H (0.2-1.0) mg/dL AST 96 H (15-37) U/L ALT 64 H (16-63) U/L Alkaline Phosphatase 274 H (46-116) U/L Troponin I 0.167 H* (0.000-0.056) ng/mL B-Natriuretic Peptide (0-100) pg/ml Total Protein 7.2 (6.4-8.2) g/dL Albumin 2.6 L (3.4-5.0) g/dL Globulin 4.6 Albumin/Globulin Ratio 0.57 Urine Color (YELLOW) Urine Appearance (CLEAR) Urine pH (5.0-9.0) Ur Specific Banks (1.005-1.030) Urine Protein (NEGATIVE) Urine Glucose (UA) (NEGATIVE) Urine Ketones (NEGATIVE) Urine Occult Blood (NEGATIVE) Urine Nitrite (NEGATIVE) Urine Bilirubin (NEGATIVE) Urine Urobilinogen (0.2-1.0) mg/dL Ur Leukocyte Esterase (NEGATIVE) Urine RBC /HPF Urine WBC (0-5/HPF) /HPF Ur Epithelial Cells (NOT SEEN) /HPF Urine Bacteria (0-FEW/HPF) /HPF Granular Casts (Auto) Fine Granular Casts (NOT SEEN) /LPF Urine Yeast (NOT SEEN) /HPF 07/02/20 07/02/20 Range/Units 12:30 13:40 WBC (5.0-10.0) 10^3/uL RBC (4.6-6.2) 10^6/uL Hgb (14.0-18.0) g/dL Hct (40.0-54.0) % MCV (80-100) fL MCH (27.0-34.0) pg MCHC (33.0-35.0) g/dL Plt Count (150-450) 10^3/uL Neut % (Auto) (42.2-75.2) % Lymph % (Auto) (20.5-50.1) % Marinette % (Auto) (2-8) % Eos % (Auto) (1.0-3.0) % Baso % (Auto) (0.0-1.0) % Sodium (136-145) mmol/L Potassium (3.5-5.1) mmol/L Chloride (98-107) mmol/L Carbon Dioxide (21-32) mmol/L Anion Gap (7-13) mEq/L BUN (7-18) mg/dL Creatinine (0.70-1.30) mg/dL Est Cr Clr Drug Dosing mL/min Estimated GFR (MDRD) BUN/Creatinine Ratio (No establ ref range) Glucose (74-99) mg/dL Lactic Acid (0.4-2.0) mmol/L Calcium (8.5-10.1) mg/dL Total Bilirubin (0.2-1.0) mg/dL AST (15-37) U/L ALT (16-63) U/L Alkaline Phosphatase (46-116) U/L Troponin I (0.000-0.056) ng/mL B-Natriuretic Peptide 451 H (0-100) pg/ml Total Protein (6.4-8.2) g/dL Albumin (3.4-5.0) g/dL Globulin Albumin/Globulin Ratio Urine Color Yellow (YELLOW) Urine Appearance Turbid (CLEAR) Urine pH 6.5 (5.0-9.0) Ur Specific Banks 1.020 (1.005-1.030) Urine Protein 100 H (NEGATIVE) Urine Glucose (UA) Negative (NEGATIVE) Urine Ketones Negative (NEGATIVE) Urine Occult Blood Large H (NEGATIVE) Urine Nitrite Negative (NEGATIVE) Urine Bilirubin Negative (NEGATIVE) Urine Urobilinogen 0.2 (0.2-1.0) mg/dL Ur Leukocyte Esterase Small H (NEGATIVE) Urine RBC 10-20 H /HPF Urine WBC 40-50 H (0-5/HPF) /HPF Ur Epithelial Cells Many H (NOT SEEN) /HPF Urine Bacteria Many H (0-FEW/HPF) /HPF Granular Casts (Auto) Many Fine Granular Casts Many H (NOT SEEN) /LPF Urine Yeast Many H (NOT SEEN) /HPF Meds: Medications Discontinued Medications Generic Name Dose Route Start Last Admin Trade Name Freq PRN Reason Stop Dose Admin Aspirin 324 mg 07/02/20 13:16 07/02/20 13:51 Aspirin PO 07/02/20 13:17 324 mg ONETIME ONE Administration Sodium Chloride 1,000 mls @ 30 mls/hr 07/02/20 13:16 07/02/20 13:50 Normal Saline IV 07/03/20 22:35 30 mls/hr CONTINUOUS ONE Administration Potassium Chloride 20 meq/ 100 mls @ 50 mls/hr 07/02/20 13:16 07/02/20 14:16 Premix IV 07/02/20 15:15 50 mls/hr ONETIME ONE Administration Potassium Chloride 20 meq/ 100 mls @ 50 mls/hr 07/02/20 16:34 07/02/20 16:41 Premix IV 07/02/20 18:33 Not Given ONETIME ONE Potassium Chloride Confirm 07/02/20 16:37 07/02/20 16:41 Kcl 10 Meq In Water 100 Ml Administered 07/02/20 16:38 10 mls/hr Dose Administration 100 mls @ as directed .ROUTE .STK-MED ONE Lidocaine HCl 30 ml 07/02/20 15:15 07/02/20 15:20 Xylocaine-Mpf 1% INJECT 07/02/20 15:16 30 ml ONETIME ONE Administration Lidocaine HCl Confirm 07/02/20 15:17 07/02/20 15:20 Xylocaine-Mpf 1% Administered 07/02/20 15:18 Not Given Dose 30 ml .ROUTE .STK-MED ONE Sodium Chloride 10 ml 07/02/20 12:15 07/02/20 14:17 Saline Flush FLUSH 10 ml ASDIRECTED PRN Administration Keep Vein Open - Radiology Interpretation Free Text/Narrative:: Head CT wo contrast: Severe atrophy. Extensive ischemic change, infarct, MCA distribution, left hemisphere. No sign of acute intracranial hemorrhage. See rad report Departure - Departure Time of Disposition: 16:02 Disposition: DC/Tfer to Acute Hospital 02 Reason for Transfer *Q: Other Condition: Serious Clinical Impression: Hypokalemia, NSTEMI (non-ST elevated myocardial infarction) UTI (urinary tract infection) Qualifiers: Urinary tract infection type: acute cystitis Hematuria presence: without hematuria Qualified Code(s): N30.00 - Acute cystitis without hematuria ARF (acute renal failure) Qualifiers: Acute renal failure type: unspecified Qualified Code(s): N17.9 - Acute kidney failure, unspecified Referrals: PCP,Unknown [Primary Care Provider] - Forms: ED Department Discharge Sepsis Event Note (ED) - Evaluation Sepsis Screening Result: No Definite Risk - Focused Exam Vital Signs: Vital Signs Temp Pulse Resp BP Pulse Ox 07/02/20 12:33 96.5 F L 80 15 107/63 98 - My Orders Last 24 Hours: My Active Orders 07/02/20 12:16 Peripheral IV Insertion Adult [OM.PC] Stat 07/02/20 13:40 CULTURE URINE [RM] Stat - Assessment/Plan Last 24 Hours: My Active Orders 07/02/20 12:16 Peripheral IV Insertion Adult [OM.PC] Stat 07/02/20 13:40 CULTURE URINE [RM] Stat
--- NOTE | 2020-07-02 14:30 | CT ---
EXAMINATION: Head wo Cont SEX: Male AGE: 85 years CLINICAL HISTORY: 86-year-old male with "slurred speech". No previous comparison CT scans or MRI of the head/brain immediately available at this institution. Scan technique: Volume acquisition of data emergency unenhanced CT scan of the head and brain obtained with the patient lying supine on the Siemens multi slice scanner [place], [place]. All data archived in the PACS system for storage, reformatting axial/sagittal/coronal planes and study (bone/brain windows). Interpretation: Abnormal. 1. Uniformly thick bony calvarium and symmetric clear pneumatization of the paranasal/mastoid sinuses. No sign of skull fracture, pathologic skeletal lesion, underlying brain contusion, or epidural/subdural hematoma. 2. Generalized atrophy symmetric and consistent with age. No hydrocephalus. 3. 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 4. No cerebral edema or mass effect on the surrounding sulci or underlying ventricular system. 5. No supratentorial or posterior fossa mass lesion. Cerebellum and brainstem unremarkable. 6. No sign of acute intracerebral, intraventricular or subarachnoid bleed. CONCLUSION: Severe atrophy. Extensive ischemic change (infarct) MCA distribution, left hemisphere. No sign of acute intracranial hemorrhage (bleed).
[2020-07-02] MEDS ORDERED: Lidocaine 1% 30 ML SDV INJECT ONE (15:15)
[2020-07-02] MEDS ORDERED: Lidocaine 1% 30 ML SDV ONE (15:17)
[2020-07-02] MEDS ORDERED: STERILE WATER IV ONE (16:30)
[2020-07-02] MEDS ORDERED: Potassium Chloride 10 MEQ in Premix Bag 1 BAG IV ONE (16:30)
[2020-07-02] MEDS ORDERED: POTASSIUM CHLORIDE IV ONE ×2 (16:30)
[2020-07-02] MEDS ORDERED: Potassium Chloride 100 ML ONE (16:37)
== END 2020-07-02 16:45 ==
LOC: DL.ED 12:08
DX: I21.4 Non-ST elevation (NSTEMI) myocardial infarction (principal); N30.00 Acute cystitis without hematuria; N17.9 Acute kidney failure, unspecified; E87.0 Hyperosmolality and hypernatremia; I10 Essential (primary) hypertension; E78.00 Pure hypercholesterolemia, unspecified; J44.9 Chronic obstructive pulmonary disease, unspecified; E11.9 Type 2 diabetes mellitus without complications; Z79.4 Long term (current) use of insulin; Z88.8 Allergy status to other drugs, medicaments and biological substances; Z79.899 Other long term (current) drug therapy
CPT/HCPCS: 36415; 70450; 80053; 81001; 83605; 83880; 84484; 85025; 87086; 93005; 96365; 96366; 99285-25; A9270-GY; J2001; J3480; J7030